=== PATIENT | male | born 1945 | race Caucasian/White ===

== ENCOUNTER → 2017-02-01 | Outpatient (CLI) | payer OTHER ==
[2014-09-04 09:51] VITALS: BP 114/56
--- NOTE | 2017-02-01 14:47 | MRI ---
Indication: Back pain paragraphs exam: MRI lumbar spine without contrast Technique: Routine multiplanar multi sequence imaging was performed through the lumbar spine without contrast Comparison: 10/23/2013. Findings: The lumbar vertebra are well aligned. There is moderate disc space narrowing throughout wit h diffuse moderate disc desiccation which is most prominent along the upper and mid lumbar region whi ch is unchanged. No fracture or subluxation is seen. The conus is normal. There is a small central di sc bulge at T12-L1 causing dural sac effacement. There is a mild to moderate extruded disc at L2-3 ex tending inferiorly along the posterior aspect of L3 which lateralizes slightly to the left and is cau sing moderate anterior lateral dural sac effacement and mild neuroforaminal narrowing on the left and appears more prominent. There is a hemilaminectomy defect at L3-4 on the left which is unchanged wit h a moderate residual disc bulge causing moderate anterior dural sac effacement which may be slightly more prominent. There are moderate hypertrophic changes of the facets throughout with ligamentum fla vum hypertrophy causing diffuse mild spinal stenosis which is most prominent L3-4. There are small re nal cystic masses bilaterally with the largest on the right measuring 3 cm and appear unchanged. Ther e are no pars defects . The paravertebral soft tissues are normal. The bone marrow signal is normal t hroughout. Impression: Moderate multilevel degenerative disc disease which is most severe at L3-4 and is unchanged with no a cute abnormality seen. Previous hemilaminotomy and discectomy at L3-4 with probable moderate residual disc bulge causing mod erate dural sac effacement which is more prominent. Mild to moderate extruded disc at L3-4 lateralizing to the left causing moderate anterolateral dural sac effacement and mild neuroforaminal narrowing on the left which is more prominent . 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 Bilateral renal cystic masses which appear unchanged. Suggest ultrasound correlation. Reported By:
== END ==
LOC: RAD 08:09
PROVIDERS: ATTEND Internal Medicine
DX: M51.36 Other intervertebral disc degeneration, lumbar region (principal)
CPT/HCPCS: 72148